=== PATIENT | male | born 1975 | race Caucasian/White ===

== ENCOUNTER 2016-05-16 15:27 | Emergency (ER) | payer OTHER ==
[~2016-05-16] VITALS: Ht 188 cm; Wt 74.0 kg
[~2016-05-16 15:27] MED LIST: Z.0.NO CURRENT MEDS
[2016-05-16 15:34] VITALS: BP 143/76; TEMP 98; O2SAT 96
[2016-05-16] MEDS ORDERED: SUBO8MIS SL (15:40)
[2016-05-16] MEDS ORDERED: TEST-55 IM (15:40)
[2016-05-16] MEDS ORDERED: HYDR200T3 PO (15:44)
--- NOTE | 2016-05-16 15:56 | PD ---
HPI Chief Complaint: Chest Pain Time Seen by Provider: 15:52 Travel History International Travel<30 days: No Contact w/Intl Traveler<30days: No Traveled to known affect area: No History of Present Illness HPI 40-year-old male with history of asthma, presents to the ER today because he states that he has had several weeks' history of shortness of breath and generalized fatigue, has a left-sided chest wall pain that started yesterday, worsens with deep breath. He denies any fevers, coughing, nausea, vomiting, or other symptoms. He was seen by his primary care physician is sent in for further evaluation. Modifying Factors: None Associated Signs & Symptoms: Shortness of breath, fatigue, left chest wall pain Risk Factors: None PFSH Past Medical History Arthritis: No Asthma: Yes ( A CHILD) Autoimmune Disease: No Blood Disorders: No Anxiety: No Depression: No Heart Rhythm Problems: No Cancer: No Cardiovascular Problems: No High Cholesterol: No Chemotherapy: No Chest Pain: No Congestive Heart Failure: No COPD: No Cerebrovascular Accident: No Diabetes: No Diminished Hearing: No Endocrine: No GERD: No Glaucoma: No Genitourinary: No Headaches: No Hepatitis: No Hiatal Hernia: No Hypertension: No Immune Disorder: No Kidney Stones: No Musculoskeletal: Yes ("NECK AND SHOULDER WHEN I SURF") Neurologic: No Psychiatric: No Respiratory: No Myocardial Infarction: No Radiation Therapy: No Renal Failure: No Seizures: Yes (2005 secondary to tramadol) Sickle Cell Disease: No Sleep Apnea: No Thyroid Disease: No Ulcer: No Influenza Vaccination: No ?: Not Past Surgical History Abdominal Surgery: No AICD: No Cardiac Surgery: No Ear Surgery: No Endocrine Surgery: No Eye Surgery: No Genitourinary Surgery: No Gynecologic Surgery: No Joint Replacement: No Oral Surgery: Yes (WISDOM TEETH) Pacemaker: No Thoracic Surgery: No Other Surgery: Yes (WISDON TEETH SX REMOVED) Social History Alcohol Use: Yes (OCCASIONALLY) Tobacco Use: No Substance Use: No Allergies-Medications (Allergen,Severity, Reaction): Coded Allergies: Tramadol (Verified Allergy, Severe, SEIZURES, 05/16/16) Reported Meds & Prescriptions Reported Meds & Active Scripts Active Reported Hydroxychloroquine (Hydroxychloroquine Sulfate) 200 Mg Tab 200 Mg PO BID Takw with food Testosterone (Testosterone (Bulk)) 1 Pow Pow 1.5 Ml IM MONTHLY Suboxone Sublingual Film (Buprenorphine-Naloxone Sublingual Film) 8-2 Mg Film 1 Film SL DAILY Unique ID number required: Review of Systems Except as stated in HPI: all other systems reviewed are Neg Physical Exam Narrative GENERAL: Well-nourished, well-developed middle age white male patient in no acute distress. SKIN: Warm and dry. HEAD: Normocephalic. EYES: No scleral icterus. No injection or drainage. NECK: Supple, trachea midline. CARDIOVASCULAR: Regular rate and rhythm without murmurs, gallops, or rubs. RESPIRATORY: Breath sounds equal bilaterally. No accessory muscle use. GASTROINTESTINAL: Abdomen soft, non-tender, nondistended. MUSCULOSKELETAL: No cyanosis, or edema. BACK: Nontender without obvious deformity. No CVA tenderness. Data Data Last Documented VS Vital Signs Date Time Temp Pulse Resp B/P Pulse Ox O2 Delivery O2 Flow Rate FiO2 05/16/16 16:03 18 96 Room Air 05/16/16 15:40 93 05/16/16 15:34 98.0 143/76 Orders Complete Blood Count With Diff (05/16/16 15:52) Comprehensive Metabolic Panel (05/16/16 15:52) D-Dimer (05/16/16 15:52) Act Partial Throm Time (Ptt) (05/16/16 15:52) Prothrombin Time / Inr (Pt) (05/16/16 15:52) Ckmb (Isoenzyme) Profile (05/16/16 15:52) Troponin I (05/16/16 15:52) Iv Access Insert/Monitor (05/16/16 15:52) Ecg Monitoring (05/16/16 15:52) Oximetry (05/16/16 15:52) Oxygen Administration (05/16/16 15:52) Chest, Single Ap (05/16/16 15:52) Sodium Chloride 0.9% Flush (Ns Flush) (05/16/16 16:00) CKMB (05/16/16 15:40) CKMB% (05/16/16 15:40) Labs Laboratory Tests Test 05/16/16 15:40 White Blood Count 12.5 TH/MM3 Red Blood Count 5.73 MIL/MM3 Hemoglobin 17.0 GM/DL Hematocrit 49.5 % Mean Corpuscular Volume 86.4 FL Mean Corpuscular Hemoglobin 29.6 PG Mean Corpuscular Hemoglobin 34.3 % Concent Red Cell Distribution Width 12.1 % Platelet Count 314 TH/MM3 Mean Platelet Volume 7.8 FL Neutrophils (%) (Auto) 77.1 % Lymphocytes (%) (Auto) 13.9 % Monocytes (%) (Auto) 7.4 % Eosinophils (%) (Auto) 0.6 % Basophils (%) (Auto) 1.0 % Neutrophils # (Auto) 9.7 TH/MM3 Lymphocytes # (Auto) 1.7 TH/MM3 Monocytes # (Auto) 0.9 TH/MM3 Eosinophils # (Auto) 0.1 TH/MM3 Basophils # (Auto) 0.1 TH/MM3 CBC Comment DIFF FINAL Differential Comment Prothrombin Time 11.3 SEC Prothromb Time International 1.0 RATIO Ratio Activated Partial 25.8 SEC Thromboplast Time D-Dimer Quantitative (PE/DVT) LESS THAN 0.19 MG/L FEU Sodium Level 141 MEQ/L Potassium Level 3.4 MEQ/L Chloride Level 103 MEQ/L Carbon Dioxide Level 29.9 MEQ/L Anion Gap 8 MEQ/L Blood Urea Nitrogen 15 MG/DL Creatinine 1.10 MG/DL Estimat Glomerular Filtration 75 ML/MIN Rate Random Glucose 80 MG/DL Calcium Level 9.1 MG/DL Total Bilirubin 1.0 MG/DL Aspartate Amino Transf 15 U/L (AST/SGOT) Alanine Aminotransferase 29 U/L (ALT/SGPT) Alkaline Phosphatase 54 U/L Total Creatine Kinase 148 U/L Creatine Kinase MB 1.2 NG/ML Troponin I LESS THAN 0.02 NG/ML Total Protein 7.4 GM/DL Albumin 4.0 GM/DL MDM Medical Decision Making Medical Screen Exam Complete: Yes Emergency Medical Condition: Yes Medical Record Reviewed: Yes Interpretation(s) EKG shows sinus rhythm at a rate of 99 bpm with no signs of acute ST-T changes. Laboratory Tests Test 05/16/16 15:40 White Blood Count 12.5 TH/MM3 (4.0-11.0) Neutrophils (%) (Auto) 77.1 % (16.0-70.0) Neutrophils # (Auto) 9.7 TH/MM3 (1.8-7.7) Potassium Level 3.4 MEQ/L (3.5-5.1) Estimat Glomerular Filtration 75 ML/MIN (>89) Rate Troponin I LESS THAN 0.02 NG/ML (0.02-0.05) Last 24 hours Impressions Chest X-Ray 05/16/16 1552 Signed Impressions: Service Date/Time: April 16:16 - CONCLUSION: No acute disease. Rk Garcia MD Differential Diagnosis ACS versus musculoskeletal versus pleurisy versus pneumonia versus PE Narrative Course Chest x-ray did not show any signs of acute processes. Vital signs are stable in the ER. D-dimer is negative. Cardiac enzymes are negative. EKG did not show any signs of dysrhythmias or any significant ST changes. At this point, symptoms are fairly atypical and appears to be more chest wall. I'm suspecting either pleurisy or underlying bronchitis rather than other acute processes. I have talked to the patient about findings and have talked him about the fact that we cannot completely exclude cardiac causes and that in order to exclude cardiac causes, he would need to be evaluated by cardiology, and I have offered to admit him to the hospital to chest pain center for further evaluation should he want further evaluation of his heart. He is declining at this time stating that he feels comfortable with the current exam. My plan would be to give him symptomatic relief with follow-up to primary care physician. Return for any worsening in symptoms as necessary. The plan was discussed with the patient and he states understanding. Diagnosis Primary Impression: Atypical chest pain Med/Other Pt SpecificInfo: Prescription(s) given Scripts Albuterol 6.7 GM Inh (Proventil Hfa 6.7 GM Inh)90 Mcg/Act Aer2 Puff INH Q4-6H PRN (SHORTNESS OF BREATH) #1 INHALER Ref 0 Prov:Shahab Ag MD 05/16/16 Azithromycin (Zithromax Z-Sumit)250 Mg [id number] Mg PO DIRECTED #1 DSPK Ref 0 500 MG (2 tabs) day 1, then 1 tab days 2-5. Prov:Shahab Ag MD 05/16/16 Ibuprofen (Motrin Ib)200 Mg Pct553 Mg PO Q6H PRN (PAIN SCALE 1 TO 10) #21 TAB Ref 0 Prov:Shahab Ag MD 05/16/16 Disposition: 01 DISCHARGE HOME Condition: Stable Shahab Ag MD May 16, 2016 15:56
[2016-05-16] MEDS ORDERED: SODIUM CHLORIDE 0.9% FLUSH 5 ML FLUSH IVF PRN (16:00)
[2016-05-16 16:03] VITALS: RESP 18; O2SAT 96
[2016-05-16 16:08] LABS: AUTOMATED NEUTROPHIL # 9.7 TH/MM3 (1.8-7.7); BASOPHIL # 0.1 TH/MM3 (0-0.2); EOSINOPHIL # 0.1 TH/MM3 (0-0.4); EOSINOPHIL % 0.6 % (0.0-4.0); HEMATOCRIT 49.5 % (39.0-51.0); HEMO FLAGS DIFF FINAL; LYMPH % 13.9 % (9.0-44.0); LYMPHOCYTE # 1.7 TH/MM3 (1.0-4.8); MEAN CELL VOLUME 86.4 FL (80.0-100.0); MEAN CORPUSCULAR HEMOGLOBIN 29.6 PG (27.0-34.0); MEAN CORPUSCULAR HGB CONC 34.3 % (32.0-36.0); MONO % 7.4 % (0.0-8.0); NEUT % 77.1 % (16.0-70.0); PLATELET COUNT 314 TH/MM3 (150-450); RED BLOOD COUNT 5.73 MIL/MM3 (4.50-5.90); RED CELL DISTRIBUTION WIDTH 12.1 % (11.6-17.2); WHITE BLOOD COUNT 12.5 TH/MM3 (4.0-11.0)
[2016-05-16 16:15] LABS: CHLORIDE 103 MEQ/L (98-107); POTASSIUM 3.4 MEQ/L (3.5-5.1); SODIUM (NA) 141 MEQ/L (136-145)
[2016-05-16 16:18] LABS: ANION GAP 8 MEQ/L (5-15); BICARBONATE 29.9 MEQ/L (21.0-32.0)
[2016-05-16 16:19] LABS: BLOOD UREA NITROGEN 15 MG/DL (7-18)
[2016-05-16 16:22] LABS: ALT (GPT) 29 U/L (12-78); AST (GOT) 15 U/L (15-37); GLOMERULAR FILTRATION RATE 75 ML/MIN (>89)
[2016-05-16 16:24] LABS: ALKALINE PHOSPHATASE 54 U/L (45-117); CREATINE KINASE 148 U/L (39-308)
--- NOTE | 2016-05-16 16:33 | RADHPO ---
EXAM DATE/TIME: 05/16/2016 16:16 [facility] COMPARISON: No previous studies available for comparison. INDICATIONS : Patient states shortness of breath. MEDICAL HISTORY : None. SURGICAL HISTORY : None. ENCOUNTER: Initial ACUITY: 1 week PAIN SCORE: 0/10 LOCATION: Bilateral chest FINDINGS: A single view of the chest demonstrates the lungs to be symmetrically aerated without evidence of mas s, infiltrate or effusion. The cardiomediastinal contours are unremarkable. Osseous structures are intact. CONCLUSION: No acute disease. Rk Garcia MD on May 16, 2016 at 16:32 Board Certified Radiologist. This report was verified electronically.
[2016-05-16 16:37] LABS: CKMB 1.2 NG/ML (0.5-3.6)
[2016-05-16 16:45] VITALS: BP 121/76; PULSE 90; RESP 16; O2SAT 98
[2016-05-16 16:52] LABS: APTT (PATIENT) 25.8 SEC (24.3-30.1); PROTHROMBIN TIME - PATIENT 11.3 SEC (9.8-11.6)
[2016-05-16] MEDS ORDERED: ALBU6.7H INH (17:14)
[2016-05-16] MEDS ORDERED: ZITHTAB PO (17:14)
[2016-05-16] MEDS ORDERED: MOTR200T4 PO (17:14)
--- NOTE | 2016-05-17 22:54 | EKG ---
Date Performed: 05/16/2016 Time Performed: 15:35:02 PTAGE: 40 years EKG: Possible ectopic atrial rhythm rSr'(V1) - probable normal variant Inferior T wave changes a re nonspecific Borderline ECG NO PREVIOUS TRACING DOCTOR: James Allison Interpretating Date/Time 05/17/2016 22:47:51
== END 2016-05-16 17:33 | disposition home or self-care (01) ==
LOC: PHED 15:27
DX: R07.89 Other chest pain (principal); R53.83 Other fatigue; R94.31 Abnormal electrocardiogram [ECG] [EKG]
CPT/HCPCS: 71010; 80053; 82550; 82552; 84484; 85025; 85379; 85610; 85730; 93005; 99285